=== PATIENT | male | born 1955 | race Caucasian/White ===

== ENCOUNTER 2019-04-04 08:34 | Day surgery (SDC) | payer BC ==
[~2019-04-04 08:34] MED LIST: Lactated Ringers 1,000 ML IV SCH
--- NOTE | 2019-04-04 09:13 | PCM.PREANE ---
Preanesthetic Assessment - Anesthesia/Transfusion/Family Hx Anesthesia History: Prior Anesthesia Without Reaction Family History of Anesthesia Reaction: No Transfusion History: No Prior Transfusion(s) - Review of Systems General: No Symptoms Pulmonary: No Symptoms Cardiovascular: No Symptoms Neurological: No Symptoms Other: Reports: None - Physical Assessment NPO Status Date: 04/03/19 Height: 5 ft 10 in Weight: 85.729 kg ASA Class: 2 Mental Status: Alert & Oriented x3 Airway Class: Mallampati = 2 ROM/Head Extension: Full Lungs: Clear to Auscultation, Normal Respiratory Effort Cardiovascular: Regular Rate, Regular Rhythm - Allergies Allergies/Adverse Reactions: Allergies Allergy/AdvReac Type Severity Reaction Status Date / Time No Known Allergies Allergy Verified 03/31/19 11:17 - Blood Blood Available: No - Anesthesia Plan Pre-Op Medication Ordered: None - Acknowledgements Anesthesia Type Planned: General Anesthesia Pt an Appropriate Candidate for the Planned Anesthesia: Yes Alternatives and Risks of Anesthesia Discussed w Pt/Guardian: Yes Pt/Guardian Understands and Agrees with Anesthesia Plan: Yes Additional Comments: anes prob list: gerd, smoking PLAN: tiva PreAnesthesia Questionnaire HEENT History: Reports: None Cardiovascular History: Reports: None Respiratory History: Reports: None Gastrointestinal History: Reports: GERD Genitourinary History: Reports: None Musculoskeletal History: Reports: None Neurological History: Reports: None Psychiatric History: Reports: Anxiety, Depression Endocrine/Metabolic History: Reports: None Hematologic History: Reports: None Immunologic History: Reports: None Oncologic (Cancer) History: Reports: None Dermatologic History: Reports: None - Past Surgical History Head Surgeries/Procedures: Reports: None HEENT Surgical History: Reports: None Cardiovascular Surgical History: Reports: None Respiratory Surgical History: Reports: None GI Surgical History: Reports: Colonoscopy, EGD Male Surgical History: Reports: Vasectomy Endocrine Surgical History: Reports: None Neurological Surgical History: Reports: None Musculoskeletal Surgical History: Reports: Arthroscopic Knee Oncologic Surgical History: Reports: None Dermatological Surgical History: Reports: None - SUBSTANCE USE Smoking Status *Q: Current Every Day Smoker Tobacco Use Within Last Twelve Months: Cigarettes - HOME MEDS Home Medications: Home Meds Omeprazole 20 mg PO DAILY 03/31/19 [History] Sertraline HCl 100 mg PO DAILY 03/31/19 [History] - CURRENT (IN HOUSE) MEDS Current Meds: Current Medications Lactated Ringer's (Ringers, Lactated) 1,000 mls @ 125 mls/hr IV ASDIRECTED YUE
[2019-04-04] MEDS ORDERED: Lidocaine 2% 5 ML SDV ONE (09:41)
[2019-04-04] MEDS ORDERED: Propofol 200 MG/20 ML SDV ONE ×2 (09:41→10:16)
[2019-04-04] MEDS ORDERED: Ketamine 500 mg/10 ML MDV ONE (09:41)
--- NOTE | 2019-04-04 10:43 | PCM.OPNOTE ---
- General Post-Op/Procedure Note Date of Surgery/Procedure: 04/04/19 Pre Op Diagnosis: Esophagogastroduodenoscopy with antral biopsy. Colonoscopy. Post-Op Diagnosis: Chronic gastritis. Hiatal hernia. No evidence of colonic neoplasia. Anesthesia Technique: MAC (ASA II) Primary Surgeon: Fernie Danielle Color Worker: Bertrand Shultz Condition: Good Free Text/Narrative:: DICTATION [id number] CPT CODE [id number]
[2019-04-04] MEDS ORDERED: Lactated Ringers 1,000 ML IV SCH (10:45)
--- NOTE | 2019-04-04 11:04 | PCM48HPAN ---
Post Anesthesia Note - EVALUATION WITHIN 48HRS OF ANESTHETIC Vital Signs in Normal Range: Yes Patient Participated in Evaluation: Yes Respiratory Function Stable: Yes Airway Patent: Yes Cardiovascular Function Stable: Yes Hydration Status Stable: Yes Pain Control Satisfactory: Yes Nausea and Vomiting Control Satisfactory: Yes Mental Status Recovered: Yes Vital Signs: Last Vital Signs Temp 97.0 F 04/04/19 09:00 Pulse 87 04/04/19 11:02 Resp 15 04/04/19 11:02 BP 118/74 04/04/19 11:02 Pulse Ox 95 04/04/19 11:02
--- NOTE | 2019-04-04 11:04 | PCM.POSTAN ---
POST ANESTHESIA ASSESSMENT - MENTAL STATUS Mental Status: Alert, Oriented - VITAL SIGNS Vital Signs: Last Vital Signs Temp 97.0 F 04/04/19 09:00 Pulse 87 04/04/19 11:02 Resp 15 04/04/19 11:02 BP 118/74 04/04/19 11:02 Pulse Ox 95 04/04/19 11:02 - RESPIRATORY Respiratory Status: Respiratory Rate WNL, Airway Patent, O2 Saturation Stable - CARDIOVASCULAR CV Status: Pulse Rate WNL, Blood Pressure Stable - GASTROINTESTINAL GI Status: No Symptoms - POST OP HYDRATION Hydration Status: Adequate & Stable
--- NOTE | 2019-04-04 11:05 | OR ---
SURGEON: Fernie Danielle M.D. DATE OF PROCEDURE: 04/04/2019 OPERATION PERFORMED: Colonoscopy. PRIMARY SURGEON: Fernie Danielle MD. SENIOR ASIC ENGINEER: mailing machine assistant: Dr. Shultz, PGY2. ANESTHESIA: MAC. ASA CLASSIFICATION: II. PREOPERATIVE DIAGNOSIS: Desire for colorectal cancer screening. POSTOPERATIVE DIAGNOSIS: No evidence of neoplasia. DESCRIPTION OF PROCEDURE: The patient was maintained in the endoscopy room in the left lateral decubitus position. Having completed esophagogastroduodenoscopy, the colonoscope was now inserted into the rectum and advanced with minimal difficulty to the cecum. Cecum was identified by internal landmarks and external pressure. The colonoscope was retroflexed to visualize the ascending colon from below, then straightened and slowly withdrawn. The cecum, ascending colon, hepatic flexure, transverse colon, splenic flexure, descending colon, sigmoid colon, and rectum were very well visualized. The prep was excellent. No tumors or polyps were seen. There was no evidence of angiodysplasia. No diverticular changes were noted. Once the colonoscope was withdrawn to the rectum, it was retroflexed to visualize the anal orifice from above. No tumors, polyps, or acute hemorrhoidal changes were noted. The colonoscope was then straightened, the rectum aspirated, and the colonoscope removed. The patient tolerated the procedure well and was taken to recovery room in stable condition. BASSEM MIRANDA /[id number]
--- NOTE | 2019-04-04 11:10 | OR ---
SURGEON: Fernie Danielle M.D. DATE OF PROCEDURE: 04/04/2019 OPERATION PERFORMED: Esophagogastroduodenoscopy with gastric biopsy. PRIMARY SURGEON: Fernie Danielle MD. FULL STACK NET DEVELOPER: facilities assistant: Dr. Shultz, PGY2. ANESTHESIA: MAC. ASA CLASSIFICATION: II. PREOPERATIVE DIAGNOSIS: Progressive gastroesophageal reflux disease with heartburn. POSTOPERATIVE DIAGNOSIS: Chronic gastritis without ulceration. DESCRIPTION OF PROCEDURE: The patient was taken to the endoscopy room, positioned on the endoscopy table in the left lateral decubitus position. Time-out was called for appropriate identification of the patient and procedure. Monitored anesthesia care was provided. The bite block was placed between the patient's teeth. The gastroscope was inserted through the bite block into the oropharynx and advanced without difficulty through the esophagus and stomach into the duodenum where examination was now carried out in a retrograde fashion. The duodenum shows no acute inflammatory changes or ulcerations. The stomach does show mild to moderate gastritis. Antral biopsies were obtained to rule out the presence of Helicobacter pylori. The gastroscope was retroflexed to visualize the proximal stomach where hiatal hernia was easily seen. No ulcerations or polyps were noted along the greater or lesser curvatures. The gastroscope was then straightened and slowly withdrawn. The patient again demonstrated a hiatal hernia. The GE junction was well defined and showed no acute inflammatory changes or ulcerations. The esophagus demonstrated good contractility. No mid or proximal lesions were identified. The vocal cords were briefly visualized as the scope was withdrawn. The gastroscope was then removed with the patient having tolerated this portion of the procedure well. Following colonoscopy was taken to recovery room in stable condition. BASSEM / RUBEN /[id number]
== END 2019-04-04 11:45 | disposition home or self-care (01) ==
LOC: MW.SDS 08:34
PROVIDERS: ATTEND Surgery
DX: Z12.11 Encounter for screening for malignant neoplasm of colon (principal); K21.9 Gastro-esophageal reflux disease without esophagitis; K29.50 Unspecified chronic gastritis without bleeding; K44.9 Diaphragmatic hernia without obstruction or gangrene; F17.210 Nicotine dependence, cigarettes, uncomplicated; Z79.899 Other long term (current) drug therapy
CPT/HCPCS: 43239; 45378; 88305; 88312; J2001; J2704; J7120